=== PATIENT | female | born 1990 | race American Indian/Alaskan Native ===

== ENCOUNTER 2023-11-14 08:20 | Outpatient (CLI) | payer OTHER, SELFPAY ==
--- NOTE | 2023-11-14 08:24 | US_ITS ---
WS: [id number] Complete ABDOMINAL ULTRASOUND HISTORY: LOWER ABD PAIN COMPARISON: None available. Liver: 14.2 cm in length. Normal size liver and echogenicity. No bile duct dilatation or mass. Portal Vein: Normal hepatopetal flow with monophasic waveform. Gallbladder: Normally distended gallbladder with no stones or wall thickening. CBD: 0.6 cm Pancreas: Nonvisualization. Right kidney: 10.0 cm x 5.1 x 4.9 cm. Cortex:1.0 cm. Normal size and echogenicity. No hydronephrosis or mass. Left kidney: 10.1 cm x 5.0 cm x 6.2 cm. Cortex: 1.0 cm. Normal size and echogenicity. No hydronephrosis or mass. Spleen: 8.1 cm. Normal size and echogenicity. Aorta and IVC: Unremarkable abdominal aorta and IVC. US/US abdomen complete* [id number] Impression: 1. Normal gallbladder. 2. Normal kidneys. 3. Nonvisualization of the pancreas. 4. No bile duct dilatation.
== END 2023-11-14 08:21 | disposition home or self-care (01) ==
PROVIDERS: Visit Provider Nurse Practitioner Family
DX: R10.30 Lower abdominal pain, unspecified (principal)
CPT/HCPCS: 76700

== ENCOUNTER → 2023-12-25 14:19 | Outpatient (CLI) | payer OTHER, SELFPAY ==
--- NOTE | 2023-12-25 14:21 | CT_ITS ---
WS: [id number] CT ABDOMEN WITH AND WITHOUT CONTRAST HISTORY: LEFT QUADRANT MASS Dual phase 5 mm axial imaging performed of the abdomen. Oral contrast has been provided. Coronal and sagittal reformats are submitted. All CT scans at [facility] use at least one of these dose o ptimization techniques: automated exposure control; mA and/or kV adjustment per patient size (include s targeted exams where dose is matched to clinical indication); or iterative reconstruction. IV CONTRAST: Omnipaque 350; 100 mL IV. Oral contrast: Yes. DLP: 408.62 mGy.cm COMPARISON: None available. Lower thorax: Lung bases are clear. Heart is normal size. No hiatal hernia. Liver/biliary system: Normal size with no intrahepatic dilatation. Gallbladder: Normal. No gallstones or wall thickening. No pericholecystic fluid. Pancreas: Normal size pancreas and pancreatic duct. No adjacent inflammation. Spleen: Normal size spleen. No mass or infarct. Adrenal glands: Normal. Right kidney: Normal. Left kidney: Normal. Aorta: Normal. Lymphadenopathy: None. Free fluid: None. GI tract: Negative stomach. Stomach is normally distended. Visualized small bowel is normal. Visualiz ed colon demonstrates moderate constipation. Abdominal wall: Fat containing umbilical hernia. Marker is placed over the LEFT lower quadrant. There is no underlying mass identified. No hernia. Normal appearance of the subcu soft tissue. Visualized osseous structures: Unremarkable. CT/CT abdomen wo/w con [id number] IMPRESSION: 1. No mass or abnormality associated with the palpable marker in the LEFT lowe r quadrant. 2. Normal abdomen ultrasound.
[2023-12-25] MEDS: iohexol 350 mg/mL 500 mL Btl (per mL) PO (14:48)
[2023-12-25] MEDS: iohexol 350 mg/mL 500 mL Btl (per mL) IV (15:00)
== END | disposition home or self-care (01) ==
LOC: RAD 14:19
PROVIDERS: PCP Nurse Practitioner; Visit Provider Nurse Practitioner
DX: K59.00 Constipation, unspecified (principal); K42.9 Umbilical hernia without obstruction or gangrene
CPT/HCPCS: 74170; Q9967

== ENCOUNTER 2025-03-14 12:59 | Emergency (ER) | payer OTHER, SELFPAY ==
[2025-03-14 13:01] VITALS: PULSE 105; RESP 18; TEMP 36.5; O2SAT 99; BMI 24.3
--- NOTE | 2025-03-14 13:41 | ECG_ITS ---
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
--- NOTE | 2025-03-14 13:47 | ED_ITS ---
HPI - General Adult 2 General: Chief complaint: General Medical Stated complaint: abd pain / sweating Time Seen by Provider: 03/14/25 13:03 Source: patient and family Mode of arrival: ambulatory Limitations: no limitations History of Present Illness: Patient is a 34-year-old female who presents to the emergency department complaining of withdrawing from kratom. Accompanied by parents, initial history gathered from patient. States that she has been a few days without taking kratom, appears that she has been taking chewable tablets for diffuse pain, though nonspecific. States that she is anxious, having pain all over, and overall just feels unwell. No vomiting, diarrhea, chills, but is noting some subjective fevers. I then spoke to patient's family, who has concern that she has been withdrawing from methylphenidate which they suspect she has been abusing. She has recently become from spouse, and spouse also concern for this. Patient has become more aggressive and has demanded her pills with family and they would like her evaluated for possible substance abuse and potential placement in rehab facility. Tachycardic and anxious at this time, overall nontoxic-appearing. Mom specifically notes that patient is supposed to take 80 mg total of methylphenidate, and gets this filled every month. States that she is supposed to take 30 mg in the morning and evening, and 20 mg with lunch for a total of 80 mg. Recently had this refilled and prescription is already down to approximately 120 pills, whereas normally she is sent prescription for 150 total pills. Mom does note however that it has been a few days that she has been without this medication. complaint: Medication withdrawal Onset (ago): day(s) Associated symptoms: Reports malaise; Deny chest pain, dyspnea, headache(s), nausea, rash, palpitations or vomiting Related Data Home Medications ?Medication ?Instructions ?Recorded ?Confirmed No Known Home Medications 03/14/2512/31 Allergies Allergy/AdvReac Type Severity Reaction Status Date / Time No Known Allergies Allergy Verified 03/14/25 13:07 Review of Systems 2 General: Reports: 10 or more systems reviewed and unremarkable except in HPI and below Const: Reports: fever(s), fatigue and malaise; Denies: chills Eyes: Denies: change in vision ENMT: Denies: throat pain, ear or mastoid pain or nasal discharge Card: Denies: chest pain, palpitations, swelling of feet/ankles or lightheadedness Resp: Denies: dyspnea, productive cough or wheezing GI: Denies: abdominal pain, nausea, vomiting, diarrhea or constipation : Denies: flank pain, difficulty voiding, dysuria or urinary frequency Musc: Reports: other (Diffuse myalgia); Denies: neck pain, back pain or joint pain Skin/Breast: Denies: rash Neuro: Denies: headache(s), numbness in extremities or weakness in extremities Psych: Reports: anxiety and other (Possible medication withdrawal); Denies: visual hallucinations, auditory hallucinations, tactile hallucinations, suicidal ideation or homicidal ideation Physical Exam 2 Const: COMMON NORMALS: patient oriented x3 and no limitations GENERAL APPEARANCE: cooperative and well developed ORIENTATION/CONSCIOUSNESS: Yes awake, Yes oriented to person, Yes oriented to place and Yes oriented to time OTHER: Anxious and agitated, diaphoretic HENMT: COMMON NORMALS: normocephalic, atraumatic and hearing grossly normal bilaterally HEAD & SCALP: normocephalic and atraumatic Eye: COMMON NORMALS: EOMs intact bilaterally and conjunctivae normal C ONJUNCTIVA: Yes conjunctivae normal OTHER: Pupils dilated but equally reactive Neck/C-Spine: COMMON NORMALS: full ROM, supple and no JVD Resp: COMMON NORMALS: normal respiratory effort, No retractions, No use of accessory muscles and clear to auscultation bilaterally AUSCULTATION: clear to auscultation bilaterally Cardio: COMMON NORMALS: no JVD, regular rate, regular rhythm, No clicks present (Cardio), No murmurs present (Cardio) and No rub (Cardio) RATE: r egular rate RHYTHM: regular rhythm GI: COMMON NORMALS: Normal to inspection, nondistended, normoactive bowel sounds present, Soft to palpation and non-tender AUSCULTATION: Yes normoactive bowel sounds PALPATION: Yes Soft to palpation RECTAL EXAM: d eferred Extremity: COMMON NORMALS: normal to inspection, full ROM and capillary refill normal Neuro: COMMON NORMALS: patient oriented x3, CN's II-XII intact bilaterally, moves all extremities, no focal motor deficits and no sensory deficits noted SENSORIUM/ORIENTATION: Yes oriented to person, Yes oriented to place and Yes oriented to time Psych: APPEARANCE: Yes disheveled ATTITUDE: Yes agitated ACTIVITY/MOTOR BEHAVIOR: Yes psychomotor agitation SPEECH: Yes Pressured speech present M OOD & AFFECT: Yes anxious and Yes irritable Skin: COMMON NORMALS: no rashes or lesions noted GENERAL SKIN EXAM: no rashes or lesions noted Course 2 Vital Signs: Vital signs: Vital Signs Temperature 97.7 F 03/14/25 13:01 Pulse Rate 105 H 03/14/25 13:01 Respiratory Rate 18 03/14/25 13:01 Pulse Oximetry 99 03/14/25 13:01 Oxygen Delivery Me thod Room Air 03/14/25 13:01 MDM - General Adult Medical Decision Making Patient is a 34-year-old female presenting with extreme agitation. 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 Labs and basic metabolic workup are reassuring to include thyroid and magnesium. Urine drug screen positive for benzodiazepines and marijuana; amphetamines detected. On exam, patient was highly agitated but responsive, and agitation improved significantly after administration of lorazepam. Clinical picture is most consistent with polysubstance withdrawal and agitation, likely related to kratom and possible stimulant use. No acute medical issues identified. Patient is medically stable. Given improvement with lorazepam and absence of red flag symptoms, no autonomic instability, or normal labs, stable vitals, patient is appropriate for outpatient management with close follow-up. Will be referred for outpatient addiction and psychiatric resources for ongoing evaluation, counseling, and support. Strict return precautions are given, family agrees with this plan. Lab Data 03/14/25 13:45 03/14/25 13:45 Laboratory Results WBC 11.07 10^3/uL (3.29-11.43) 03/14/25 13:45 RBC 4.02 10^6/uL (3.85-5.65) 03/14/25 13:45 Hgb 12.40 g/dL (11.27-16.99) 03/14/25 13:45 Hct 36.2 % (36-47) 03/14/25 13:45 MCV 90.0 fl (85-98) 03/14/25 13:45 MCH 30.8 pg (27-33) 03/14/25 13:45 MCHC 34.3 g/dL (30-55) 03/14/25 13:45 RDW 12.8 % (12.1-15.1) 03/14/25 13:45 Plt Count 293 10^3/cmm (157-399) 03/14/25 13:45 MPV 10.8 fL (7.4-10.4) H 03/14/25 13:45 Neut % (Auto) 86.4 % 03/14/25 13:45 Lymph % (Auto) 9.8 % 03/14/25 13:45 [place] % (Auto) 3.2 % 03/14/25 13:45 Eos % (Auto) 0.2 % 03/14/25 13:45 Baso % (Auto) 0.1 % 03/14/25 13:45 Neut # (Auto) 9.57 10^3/uL (1.8-7.7) H 03/14/25 13:45 Lymph # (Auto) 1.1 10^3/uL (0.8-4.8) 03/14/25 13:45 [place]ks # (Auto) 0.4 10^3/uL (0.2-0.9) 03/14/25 13:45 Eos # (Auto) 0.0 10^3/uL (0.0-0.8) 03/14/25 13:45 Baso # (Auto) 0.0 10^3/uL (0.0-0.1) 03/14/25 13:45 Nucleated RBC % (auto) 0 % 03/14/25 13:45 Nucleated RBCs # 0.0 /100WBC 03/14/25 13:45 Sodium 136 mmol/L (136-145) 03/14/25 13:45 Potassium 3.1 mmol/L (3.5-5.1) L 03/14/25 13:45 Chloride 101 mmol/L (98-107) 03/14/25 13:45 Carbon Dioxide 25 mmol/L (22-29) 03/14/25 13:45 Anion Gap 13.1 (5-19) 03/14/25 13:45 BUN 11 mg/dL (6-20) 03/14/25 13:45 Creatinine 0.7 mg/dL (0.5-0.9) 03/14/25 13:45 GFR Calculation 95.2 mL/min (90-130) 03/14/25 13:45 Glucose 139 mg/dL (65-115) H 03/14/25 13:45 Calculated Osmolality 284 mOsm/kg (285-295) L 03/14/25 13:45 Calcium 9.1 mg/dL (8.5-10.5) 03/14/25 13:45 Total Bilirubin 0.5 mg/dL (0.15-1.2) 03/14/25 13:45 AST 19 U/L (0-32) 03/14/25 13:45 ALT 16 U/L (0-33) 03/14/25 13:45 Alkaline Phosphatase 50 U/L (35-105) 03/14/25 13:45 Total Protein 7.4 g/dL (6.6-8.7) 03/14/25 13:45 Albumin 4.0 g/dL (3.5-5.2) 03/14/25 13:45 Globulin 3.4 g/dL (1.3-4.6) 03/14/25 13:45 TSH 1.04 uIU/mL (0.27-4.20) 03/14/25 13:45 Urine Opiates Screen Negative ng/mL (Negative) 03/14/25 13:47 Ur Barbiturates Screen Negative ng/mL (Negative) 03/14/25 13:47 Ur Phencyclidine Scrn Negative ng/mL (Negative) 03/14/25 13:47 Ur Amphetamines Screen Negative ng/mL (Negative) 03/14/25 13:47 U Benzodiazepines Scrn Positive ng/mL (Negative) H 03/14/25 13:47 Urine Cocaine Screen Negative ng/mL (Negative) 03/14/25 13:47 U Marijuana (THC) Screen Positive ng/mL (Negative) H 03/14/25 13:47 No radiology studies performed this visit Discharge Plan Discharge Patient Disposition: Home Clinical Impression: Drug withdrawal Qualifiers: Substance type: other psychostimulant Qualified Code(s): F15.93 - Other stimulant use, unspecified with withdrawal Condition: Stable Prescriptions: No Action No Known Home Medications Discharge Orders: Discharge ED (Routine); Ordered 03/14/25 Ordered By: Orlando Lyles Patient Instructions: Patient Portal & Chan Instructions Activity Restrictions/Additional Instructions: Kratom Withdrawal Discharge Diagnosis: Medication withdrawal, most likely due to kratom, with possible contribution from methylphenidate. Patient improved after lorazepam administration. Discharge Plan: - Rescue Medication: Dispensed a limited supply of lorazepam for rescue use in case of severe withdrawal symptoms (e.g., anxiety, agitation, insomnia). Use only as directed. Lorazepam is indicated for short-term management of acute withdrawal symptoms; prolonged use increases risk of dependence and should be avoided.[1] https://pubmed.ncbi.nlm.nih.gov/30067070 [2] https://www.healthquality.az.gov/guidelines/MH/evaristo/V M-EcX-TYU-CPG_Final_for-508_v3.pdf - Outpatient Rehabilitation: Referral placed; patient to await contact from facility. Outpatient addiction treatment is recommended for ongoing support and relapse prevention.[3] https://pubmed.ncbi.nlm.nih.gov/45971028 [4] https://www.psychiatry.org/getattachment/7kg3a073-4s 01-1905-w3jyu8ll-6w9olw964i70/Urkbscma-Ezvrjqoe-Wxoe-Reduction.pdf - Symptom Monitoring: Kratom withdrawal may present with opioid-like symptoms: - Psychological: anxiety, restlessness, irritability, depressed mood, insomnia, craving. [5] https://pubmed.ncbi.nlm.nih.gov/72649766 [6] https://pubmed.ncbi.nlm.nih.gov/33362539 - Physical: myalgia, joint pain, lacrimation, rhinorrhea, yawning, diarrhea, feverish sensation, tremors, chills, decreased appetite. [5] https://pubmed.ncbi.nlm.nih.gov/61633265 [6] https://pubmed.ncbi.nlm.nih.gov/93798756 [7] https:/ /pubmed.ncbi.nlm.nih.gov/80286732 Most symptoms are self-limited but may persist for several days. - Medication Safety: - Use lorazepam only for severe symptoms and avoid exceeding prescribed dose. - Do not combine lorazepam with alcohol, opioids, or other sedatives due to risk of respiratory depression and overdose. [7] https://pubmed.ncbi.nlm.nih.gov/55551651 - Store medication securely. - Strict Return Precautions: Return to the emergency department or seek immediate medical attention for any of the following: - Chest pain, palpitations, or new cardiac symptoms - Severe confusion, hallucinations, or paranoia - Seizures - Persistent vomiting or inability to tolerate oral intake - Signs of dehydration (e.g., dizziness, orthostasis) - Suicidal ideation or severe mood disturbance - Worsening muscle rigidity, tremor, or fever - Any new or concerning symptoms - Follow-Up: - Await call from outpatient rehabilitation. - If not contacted within 3 business days, call the facility directly. - Primary care follow-up within 1 week recommended for ongoing monitoring. Education: - Kratom is an atypical opioid with potential for dependence and withdrawal similar to traditional opioids. [5] https://pubmed.ncbi.nlm.nih.gov/93040457 [3] https://pubmed.ncbi.nlm.nih.gov/92864486 [6] https:/ /pubmed.ncbi.nlm.nih.gov/49112320 [7] https://pubmed.ncbi.nlm.nih.gov/60045578 - Withdrawal severity is associated with dose frequency and duration of use. [ 8] https://pubmed.ncbi.nlm.nih.gov/43540359 [6] https://pubmed.ncbi.nlm.nih.gov/67543872 - Lorazepam is not a long-term solution; structured addiction treatment is essential for recovery.[3] https://pubmed.ncbi.nlm.nih.gov/11388737 [4] https://www.psychiatry.org/getattachment/7px0f737-8y 35-3112-z9pga0of-6v2meg601x69/Xaqemwng-Jgxsdhzc-Vmlt-Reduction.pdf Laboratory and ECG: Recent workup in the emergency department was reassuring; no acute medical complications identified. Additional Notes: - Avoid resuming kratom or methylphenidate without medical supervision. - Consider harm reduction strategies and discuss naloxone if there is any risk of opioid co-use.[4] https://www.psychiatry.org/getattachment/2ng4z585-6p89-2812-y7ah-7o1jrt970c76/Re wpnjaj-Kdykoxyk-Qosd-Reduction.pdf Contact Information: For questions or concerns, contact the discharging provider or the outpatient rehabilitation facility. References * The Diagnosis of Severe Obsessions in the Setting of Kratom Withdrawal and Treatment With Lorazepam: Case Report https://pubmed.ncbi.nlm.nih.gov/06096646 . Jhony Estrada. Journal of Addictive Diseases. 2020-Sep;39(1):138-139. doi:10.1080/91104654.2019.7727017. * Management of Substance Use Disorder (EVARISTO) (2020) https://www.healthquality.az.gov/guidelines/MH/evaristo/VF-TcL-KUL-CPG_Final_for-50 8_v3.pdf . Shay Verde PharmD, Emmie Pearl SCIENCES DEAN, Mary Grace Haynes PhD MS, et al. [facility] [employer]. * Kratom Withdrawal: A Systematic Review With Case Series https://pubmed.ncbi.nlm.nih.gov/93140178 . Jordan CN, Anuj SA, Ar S, Dayday T. Journal of Psychoactive Drugs. 2018;51(1):12-18. doi:10.1080/96260165.2018.8087610. * Resource Document on Harm Reduction https://www.psychiatry.org/getattachment/6yx2r817-7i23-2246-p1bi-8q5nyo372y04/ Zqsnncsi-Vkrfpqjm-Tevl-Reduction.pdf . Farzana Lei MD PHD, Sho Desai MD, Jose Hurtado MD, et al. [employer] (2023). * Kratom Dependence and Treatment Options: A Comprehensive Review of the Literature https://pubmed.ncbi.nlm.nih.gov/32998325 . Ren BLANTON. Current Drug Targets. 2020;21(15):1968-5323. doi:10.2174/1764032117284247198433432. * Kratom (Mitragyna Speciosa) Dependence, Withdrawal Symptoms and Craving in Regular Users https://pubmed.ncbi.nlm.nih.gov/03838162 . Bret Lozano, M?colby CP, King CHASE. Drug and Alcohol Dependence. 2014;139:132-7. doi:10.1016/j.drugalcdep.2014.03.017. * Clinical Pharmacology of the Dietary Supplement Kratom (Mitragyna Speciosa) https://pubmed.ncbi.nlm.nih.gov/69097958 . Candy C, Madeline M, Capri SR. Journal of Clinical Pharmacology. 2021;62(5):577-593. doi:10.1002/jcph.2001. * Kratom Addiction Per DSM-5 EVARISTO Criteria, and Kratom Physical Dependence: Insights From Dosing Amount Versus Frequency https://pubmed.ncbi.nlm.nih.gov/47859423 . Eric TATE, Alexandra ST, Genevieve DH, et al. Drug and Alcohol Dependence. 2023;260:811844. doi:10.1016/j.drugalcdep.2023.418071. Print Language: Kinyarwanda Coding Level of Care Code ED Clay Miller for Swathi Michelle
[2025-03-14 13:49] LABS: Hematocrit 36.2 % (36-47); Hemoglobin 12.40 g/dL (11.27-16.99); Mean Corpuscular HGB Conc 34.3 g/dL (30-55); Mean Corpuscular Hemoglobin 30.8 pg (27-33); Mean Corpuscular Volume 90.0 fl (85-98); Nucleated Red Blood Cells % 0 %; Platelet Count 293 10^3/cmm (157-399); Red Blood Count 4.02 10^6/uL (3.85-5.65); White Blood Count 11.07 10^3/uL (3.29-11.43)
[2025-03-14] MEDS: LORazepam 1 MG/0.5 ML injection IVP (13:58)
[2025-03-14 14:18] LABS: PCP Screen Urine Negative (Negative)
[2025-03-14 14:25] LABS: Alanine Aminotransferase 16 U/L (0-33); Albumin Level 4.0 g/dL (3.5-5.2); Alkaline Phosphatase 50 U/L (35-105); Anion Gap 13.1 (5-19); Aspartate Amino Transferase 19 U/L (0-32); Blood Urea Nitrogen 11 mg/dL (6-20); Calcium 9.1 mg/dL (8.5-10.5); Carbon Dioxide 25 mmol/L (22-29); Chloride 101 mmol/L (98-107); Creatinine Clr Calc Pharmacy 115.2508; Globulin 3.4 g/dL (1.3-4.6); Glucose 139 mg/dL (65-115); Osmolality Calculated 284 mOsm/kg (285-295); Potassium 3.1 mmol/L (3.5-5.1); Sodium 136 mmol/L (136-145); Thyroid Stimulating Hormone 1.04 uIU/mL (0.27-4.20); Total Protein 7.4 g/dL (6.6-8.7)
[2025-03-14 14:56] VITALS: BP 99/68; PULSE 71; O2SAT 98
--- NOTE | 2025-03-16 09:02 | DCPLANNER ---
messaged [facility] [place] for er f/u
== END 2025-03-14 15:01 | disposition home or self-care (01) ==
PROVIDERS: Emergency Provider Physician Assistant
DX: F15.93 Other stimulant use, unspecified with withdrawal (principal)
CPT/HCPCS: 36415; 80053; 80306; 84443; 85025; 93005; 96361; 96374; 99284; J2060; J7040; J9999